=== PATIENT | female | born 1970 | race African-American/Black ===

== ENCOUNTER 2019-12-19 15:54 | Outpatient (CLI) | payer BC, SELFPAY ==
--- NOTE | ~2019-12-19 | MM_ITS ---
EXAMINATION: MM screening jacqueline BI w nidhi HISTORY: Screening mammogram TECHNIQUE: Craniocaudal and mediolateral oblique 3-D tomosynthesis images were obtained and synthetic 2-D images were generated. CAD analysis was submitted and interpreted. COMPARISON: Comparison to multiple prior studies sequentially, with oldest reviewed study dated 08/29. BREAST PARENCHYMAL COMPOSITION: There are scattered areas of fibroglandular density. FINDINGS: The left breast is stable without evidence for malignancy. There is a new focal mass in the medial aspect of the right breast on CC view. IMPRESSION: 1. New 5 mm right breast mass medially on CC view. 2. Additional mammographic views and possible breast ultrasound are recommended. BI-RADS Category 0: Incomplete: Needs additional imaging evaluation. Reviewed, dictated and finalized at location A. ISHING SPECIALIST IMPRESSION: 1. New 5 mm right breast mass medially on CC view. 2. Additional mammographic views and possible breast ultrasound are recommended . BI-RADS Category 0: Incomplete: Needs additional imaging evaluation.
== END 2019-12-19 15:55 | disposition home or self-care (01) ==
LOC: ANHIMG 15:58
PROVIDERS: PCP Internal Medicine; Visit Provider Obstetrics & Gynecology
DX: Z12.31 Encounter for screening mammogram for malignant neoplasm of breast (principal); R92.8 Other abnormal and inconclusive findings on diagnostic imaging of breast
CPT/HCPCS: 77063; 77067

== ENCOUNTER 2020-01-15 12:13 | Outpatient (CLI) | payer BC, SELFPAY ==
--- NOTE | ~2020-01-15 | MMUS_ITS ---
EXAMINATION: MM diagnostic mammo unilat RT, US breast RT limited HISTORY: Follow-up right breast asymmetry TECHNIQUE: Additional 3-D tomosynthesis images of the right breast were performed and synthetic 2-D i mages were generated. CAD analysis was submitted and interpreted. High resolution right breast ultras ound was performed. COMPARISON: 12/19/2019 FINDINGS: MAMMOGRAPHIC FINDINGS: Breast composed of scattered areas of fibroglandular density. There is a focal 4 mm asymmetry mediall y in the right breast, anterior third. No suspicious calcifications or architectural distortion. ULTRASOUND: Right breast ultrasound: There is a 4 mm complicated cyst at the 2:00 position the right breast near the nipple corresponding to the mammographic finding. Suspicious masses to suggest malignancy. IMPRESSION: 1. No evidence for malignancy in the right breast. 2. Routine yearly screening mammogram and regular clinical breast examination are recommended. BI-RADS Category 2: Benign finding(s). Reviewed, dictated and finalized at location A. IMPRESSION: 1. No evidence for malignancy in the right breast. 2. Routine yearly screening mammogram and regular clinical breast examination a re recommended. BI-RADS Category 2: Benign finding(s).
== END 2020-01-15 12:14 | disposition home or self-care (01) ==
LOC: ANHIMG 12:14
PROVIDERS: PCP Internal Medicine; Visit Provider Obstetrics & Gynecology
DX: R92.8 Other abnormal and inconclusive findings on diagnostic imaging of breast (principal)
CPT/HCPCS: 76642; 77065

== ENCOUNTER 2020-08-26 12:28 | Outpatient (CLI) | payer BC, SELFPAY ==
--- NOTE | ~2020-08-26 | US_ITS ---
EXAMINATION: US carotid duplex BI DATE: 08/26/2020 14:31 INDICATION: Right carotid bruit. TECHNIQUE: Grayscale, color Doppler, and pulsed Doppler images of the cervical carotid arteries were obtained. The degree of vessel stenosis is placed in one of the following categories: normal, <50%, 5 0-69%, >=70% but less than near-occlusion, near-occlusion, or total occlusion. Note that percent sten osis relative to normal distal artery lumen diameter is indirectly measured from velocity measurement s as described by Madhav, et al. Radiology 2003; 229:340-346. COMPARISON: None. FINDINGS: RIGHT: The right common carotid artery (CCA) peak systolic velocity (PSV) is 158 cm/s. The right internal ca rotid artery (ICA) PSV is 70 cm/s. The right ICA end-diastolic velocity (EDV) is 22 cm/s. The right I CA/CCA PSV ratio is 0.4. Grayscale and color Doppler images yield an estimate of <50% diameter reduct ion from plaque in the ICA. There is antegrade flow in the right vertebral artery. LEFT: The left CCA PSV is 148 cm/s. The left ICA PSV is 85 cm/s. The left ICA EDV is 39 cm/s. The left ICA/ CCA PSV ratio is 0.6. Grayscale and color Doppler images yield an estimate of <50% diameter reduction from plaque in the ICA. There is antegrade flow in the left vertebral artery. IMPRESSION: 1. <50% stenosis in the right internal carotid artery. 2. <50% stenosis in the left internal carotid artery. Reviewed, dictated and finalized at location A.
--- NOTE | 2020-08-26 12:53 | ECHO_ITS ---
Patient Info Name: Ciera Downs Age: 50 years : 1970 Gender: Female Ht: 68 in Wt: 468 lbs BSA: 3.34 m2 HR: 94 bpm BP: 134 / 88 mmHg Technical Quality: Good Exam Date: 08/26/2020 1:14 PM Exam Location: [facility] Patient Status: Outpatient Admit Date: 08/26/2020 Staff Ordering Physician: Magdalena Mackey Sales And Leasing Agent: Rahel Fields RDCS Attending Provider: Magdalena Mackey Referring Physician: Key DOTY; Exam Type: CA echo doppler color flow Study Info Indications R06.02 - Shortness of breath Complete two-dimensional, color flow and Doppler transthoracic echocardiogram is performed. Summary 1. Complete two-dimensional, color flow and Doppler transthoracic echocardiogram is performed. 2. Left ventricular chamber dimension is normal. 3. Ventricular septum is sigmoid shaped. Resting LVOT peak gradient is 15 mmHg and mean 8 mmHg suggests mild obstruction. This suggests hypertrophic cardiomyopathy. 4. Left ventricular systolic function is hyperdynamic, estimated at >70%. 5. The left ventricular diastolic function is grade I diastolic dysfunction. 6. E/e' 10 is mildly elevated. 7. Left atrial chamber dimension is mildly enlarged. 8. The mitral valve has mildly calcified annulus. 9. Mild systolic anterior motion of mitral valve. Left Ventricle E/e' 10 is mildly elevated. Ventricular septum is sigmoid shaped. Resting LVOT peak gradient is 15 mmHg and mean 8 mmHg suggests mild obstruction. This suggests hypertrophic cardiomyopathy. Left ventricular chamber dimension is normal. Left ventricular systolic function is hyperdynamic, estimated at >70%. The left ventricular diastolic function is grade I diastolic dysfunction. Right Ventricle Right ventricular chamber dimension is normal. Right ventricular systolic function is normal. Left Atria Left atrial chamber dimension is mildly enlarged. Right Atria Right atrial chamber dimension is normal. Aortic Valve The aortic valve is trileaflet. There is no aortic valve stenosis. There is no aortic valve regurgitation. Pulmonic Valve There is no pulmonic regurgitation. Mitral Valve The mitral valve has mildly calcified annulus. Mild systolic anterior motion of mitral valve. There is no mitral valve stenosis. There is no mitral valve regurgitation. Tricuspid Valve There is no tricuspid valve regurgitation. Pericardium/Pleural There is no pericardial effusion. Inferior Vena Cava Normal inferior vena cava with >50% collapse upon inspiration consistent with normal right atrial pressure, 5 mmHg. Aorta The aortic root size at the sinus of Valsalva is normal. Left Ventricular Outflow Tract Name Value Normal LVOT 2D LVOT Diameter 2.0 cm LVOT Doppler LVOT Peak Gradient 14 mmHg LVOT Mean Gradient 8 mmHg LVOT VTI 38 cm LVOT VTI/AV VTI Ratio 1.0 LVOT Stroke Volume 115 ml LVOT CO 10.0 l/min LVOT CI
== END 2020-08-26 12:29 | disposition home or self-care (01) ==
LOC: ANHCARD 12:30
PROVIDERS: PCP Internal Medicine; Visit Provider Clinical Nurse Specialist
DX: R06.02 Shortness of breath (principal); R09.89 Other specified symptoms and signs involving the circulatory and respiratory systems; I65.23 Occlusion and stenosis of bilateral carotid arteries
CPT/HCPCS: 93306; 93880

== ENCOUNTER 2020-10-05 10:00 | Outpatient (RCR) | payer BC, SELFPAY ==
--- NOTE | 2020-08-18 09:37 | PTOPEVAL ---
PHYSICAL THERAPY EVALUATION AND PLAN OF CARE 08-18-2020 Thank you for referring Ciera Downs to [facility].? Her insurance has authorized her for 8 visits, so she is scheduled to be seen for therapy?2x/week for 4 weeks. Then a reevaluation will be performed and a request will issued for additional visits. The expectation will be for 8-12 weeks of PT treatment for both legs. Please review, sign, date and return this plan of care LAURA. I agree with and certify that the following plan of care is medically necessary. Referring Physician Date Attending Provider: Joe Birmingham DO *PT Outpatient Evaluation Document 08/18/20 08:10 VICKIE (Rec: 08/18/20 09:37 VICKIE [id number]) Outpatient Past Medical History Past Medical History Source of Past Medical History Patient Neurological History Hx Neurological Disorders No Significant History Cardiovascular History Hx Hypercholesterolemia Yes: meds Hx Hypertension Yes: meds Respiratory History Hx Respiratory Disorders No Significant History Gastrointestinal History Hx Cholecystectomy Yes Genitourinary History Hx Genitourinary Disorders No Significant History Musculoskeletal History Hx Back Pain Yes: low back and both leg pain Hx Orthopedic Surgery Yes: R knee arthroscopy medial meniscus Hx Other Musculoskeletal Disorders Yes: L LE stripping of veins Hematological History Hx Hematological Disorders No Significant History Endocrine History Hx Diabetes Yes: pre diabetic- watching blood levels HEENT History Hx HEENT Disorders No Significant History Integumentary History Hx Skin Disorders No Significant History Other History Hx MRSA Yes: after gall bladder surgery; no recent issues Evaluation Information Problem Diagnosis B LE lymphedema Onset 2014 Subjective Information chronic lymphedema of both Query Text:As Reported By Patient/ legs Family Previous Treatments Previous Treatments For This Problem PT here in past January 2018 Prior Level of Function Activity Level (Last 3 Months) Occupation working from home; computer and phone Home Setting Home Type House Environmental Barriers Stairs, Greater than 4 Living Situation With Parent,With Relatives Mobility Assistive Devices (Used Last 3 None,Cane Months) Bathing Equipment Hand Held Shower,Tub Transfer Bench Comments Additional Prior Level of Function require assist with bathing, Comments transfers at times
--- NOTE | 2020-09-10 08:09 | PCPTNOTE ---
pt called and canceled today's appt, has to have cardiac testing done.
--- NOTE | 2020-09-14 10:59 | PTOPEVAL ---
PHYSICAL THERAPY RE-EVALUATION AND UPDATED PLAN OF CARE 09-14-2020 Refer to the clinical summary below for the comparison from initial evaluation to today's reevaluation. Thank you for referring Ciera Downs to [facility] Therapy is scheduled to continue? 2 x/week for 6 weeks. Please review, sign, date and return this plan of care LAURA. I agree with and certify that the following plan of care is medically necessary. Referring Physician Date Attending Provider: Joe Birmingham, *PT Outpatient Re-Evaluation Document 09/14/20 10:10 VICKIE (Rec: 09/14/20 10:59 VICKIE [id number]) Subjective Information Ciera reports: pleased with Query Text:As Reported By Patient/ the softening of her R Family lobules and how the compression garment is helping her L LE; had ECHO and carotid artery checked, to see pharmacy resident next week for the results of the tests; is continuing to postal worker, so able to keep the compression reduction kit on her L leg, but if have to drive, cannot wear it due to the bulkiness, cannot get into the car and drive with it on; wants to continue therapy, Her mom and aunt are helping her put the garments on and she is wearing them to sleep in. Pain Assessment Timing of Pain Assessment Timing of Pain Assessment Assessment Pain Scale Pain Scale Used Numeric (1 - 10) Self Report Pain Assessment Bilateral Leg(s) Reported Pain Level 7 Pain Frequency Chronic Other Pain Description pain and heaviness in legs Lowest Pain Intensity 6 Greatest Pain Intensity 9 Pain Aggravating Factors Additional Pain Comments awaken from sleep 2x/night due to leg pain Pain Score Pain Score 7: Self Report Interventions Used Interventions Used By Clinicians Exercise Lower Extremity Range of Motion General Lower Extremity Range of Motion Gross Lower Extremity Range of Motion sitting knee flexion R 75'/ L Comments 80'; Gait Assessment Gait Assessment Ambulation Assistive Devices Cane Ambulation Distance 100 Query Text:(Feet) Ambulation Destination In Corridor Ambulation Ability Independent Additional Ambulation Comments labored with walking due to
--- NOTE | 2020-09-24 13:27 | PCPTNOTE ---
Patient had seen adult basic education manager the other day due to them requiring another set of tests. Patient cannot remember the name of the diagnosis, however states her heart is not beating properly and one of her polk is thick. She state's MD put her on a beta tristian which will lower her BP and possibly have some side effects such as(dizzy, light headed, just generally feeling Off. ) Patient reports she mentioned all of her lymphedema therapy to the MD and he stated to continue with all that she is doing as she probably has had this for awhile. Spoke with Zita Lam about treatment today and plan-okay to continue per POC.
--- NOTE | 2020-10-08 09:44 | PCPTNOTE ---
pt called and cancelled due to insurance verification.
--- NOTE | 2020-10-15 10:07 | PCPTNOTE ---
Pt called and cancelled today due to non coverage of insurance.
--- NOTE | 2020-11-15 09:45 | PCPTNOTE ---
PHYSICAL THERAPY DISCHARGE 11-15-20 Attending Provider: oJe Birmingham DO Patient:Ciera Downs Date of :1970 Ms. Downs has not returned for any further treatments since 10/05/2020, therefore she will be discharged at this time. She received a total of 8 PT sessions, from August 18 to October 05, 2020, for the diagnosis of B LE lymphedema. She then stopped attending therapy. There were issues with her insurance. At the last measurement, her L LE circumferential measurement was 1317.5 cm. The goals were not assessed. Thank you for referring Ms. Downs to [facility]. Please review, sign, date and return this discharge summary LAURA. I have been updated about the patient's current status and I agree with discharge from the above service at this time. Referring Physician Date
== END 2020-11-16 10:17 | disposition home or self-care (01) ==
LOC: ANHPT 10:00
PROVIDERS: PCP Internal Medicine; Visit Provider Internal Medicine
DX: I89.0 Lymphedema, not elsewhere classified (principal)
CPT/HCPCS: 97140; 97161

== ENCOUNTER 2021-04-20 10:02 | Outpatient (CLI) | payer BC, SELFPAY ==
--- NOTE | ~2021-04-20 | MM_ITS ---
EXAMINATION: MM screening jacqueline BI w nidhi HISTORY: Screening mammogram TECHNIQUE: Craniocaudal and mediolateral oblique 3-D tomosynthesis images were obtained and synthetic 2-D images were generated. CAD analysis was submitted and interpreted. COMPARISON: 01/15/2020 diagnostic right mammogram and limited right breast ultrasound 12/19/2019, , 11/22/2017, 11/17/2016, 09/17/2015 bilateral digital screening mammogram examinat ions BREAST PARENCHYMAL COMPOSITION: There are scattered areas of fibroglandular density. FINDINGS: Stable mild fibroglandular asymmetry since 09/17/2015. There is no evidence of suspicious m ass, calcification, or architectural distortion to suggest malignancy in either breast. There has bee n no suspicious interval change. IMPRESSION: 1. No mammographic evidence of malignancy. 2. Recommend routine screening mammography in one year. BI-RADS Category 2: Benign finding(s). Reviewed, dictated and finalized at location A.
== END 2021-04-20 10:03 | disposition home or self-care (01) ==
LOC: ANHIMG 10:05
PROVIDERS: PCP Internal Medicine; Visit Provider Obstetrics & Gynecology
DX: Z12.31 Encounter for screening mammogram for malignant neoplasm of breast (principal)
CPT/HCPCS: 77063; 77067

== ENCOUNTER 2021-12-12 09:34 | Outpatient (CLI) | payer BC, SELFPAY ==
--- NOTE | 2021-12-12 09:41 | ECHO_ITS ---
Patient Info Name: Ciera Downs Age: 51 years : 1970 Gender: Female Ht: 67 in Wt: 417 lbs BSA: 3.12 m2 HR: 79 bpm BP: 135 / 92 mmHg Technical Quality: Good Exam Date: 12/12/2021 10:06 AM Exam Location: [facility] Patient Status: Outpatient Admit Date: 12/12/2021 Staff Ordering Physician: Joshua David DO Oil Field Technician: Rahel Fields RDCS Attending Provider: Joshua David DO Referring Physician: Frankie HUNT; Exam Type: CA echo doppler color flow Study Info Indications I42.2 - Other hypertrophic cardiomyopathy Complete two-dimensional, color flow and Doppler transthoracic echocardiogram is performed. Summary 1. Complete two-dimensional, color flow and Doppler transthoracic echocardiogram is performed. 2. Left ventricular chamber dimension is normal. 3. Left ventricular systolic function is normal, estimated at 60-65%. 4. The left ventricular diastolic function is grade II diastolic dysfunction. 5. E/e' 15 is elevated. 6. Global longitudinal strain is normal at -17.5%. 7. Left atrial chamber dimension is mildly enlarged. 8. There is trace aortic valve regurgitation. 9. No pulmonary hypertension, estimated pulmonary arterial systolic pressure is 33 mmHg. 10. There is trivial pericardial effusion. Left Ventricle E/e' 15 is elevated. Global longitudinal strain is normal at -17.5%. Left ventricular chamber dimension is normal. Left ventricular systolic function is normal, estimated at 60-65%. The left ventricular diastolic function is grade II diastolic dysfunction. Right Ventricle Right ventricular chamber dimension is normal. Right ventricular systolic function is normal. Left Atria Left atrial chamber dimension is mildly enlarged. Right Atria Right atrial chamber dimension is normal. Aortic Valve The aortic valve is trileaflet. There is no aortic valve stenosis. There is trace aortic valve regurgitation. Pulmonic Valve There is no pulmonic regurgitation. Mitral Valve There is no mitral valve stenosis. There is no mitral valve regurgitation. Tricuspid Valve There is no tricuspid valve regurgitation. No pulmonary hypertension, estimated pulmonary arterial systolic pressure is 33 mmHg. Pericardium/Pleural There is trivial pericardial effusion. Inferior Vena Cava Normal inferior vena cava with >50% collapse upon inspiration consistent with normal right atrial pressure, 5 mmHg. Aorta The aortic root size at the sinus of Valsalva is normal. Left Ventricular Outflow Tract Name Value Normal LVOT 2D LVOT Diameter 1.9 cm LVOT Doppler LVOT Peak Gradient 5 mmHg LVOT Mean Gradient 3 mmHg LVOT VTI 26 cm LVOT VTI/AV VTI Ratio 0.7 LVOT Stroke Volume 71 ml LVOT CO 5.2 l/min LVOT CI 1.7 l/min/m2 Pulmonic Valve Name Value Normal -----
== END 2021-12-12 09:35 | disposition home or self-care (01) ==
PROVIDERS: PCP Internal Medicine; Visit Provider Internal Medicine Cardiovascular Disease
DX: I42.2 Other hypertrophic cardiomyopathy (principal)
CPT/HCPCS: 93306

== ENCOUNTER → 2022-01-21 08:38 | Outpatient (CLI) | payer BC, SELFPAY ==
--- NOTE | ~2022-01-21 | XR_ITS ---
EXAMINATION: XR chest 2V DATE: 01/21/2022 08:55 INDICATION: Shortness of breath TECHNIQUE: frontal view of the chest was obtained. COMPARISON: None FINDINGS: The lungs are clear with no focal airspace opacities, pulmonary edema, pleural effusion or pneumothor ax. The cardiomediastinal silhouette is normal. Mild lower thoracic dextrocurvature. IMPRESSION: 1. No acute cardiopulmonary disease. Reviewed, dictated and finalized at location A.
== END ==
PROVIDERS: PCP Clinical Nurse Specialist; Visit Provider Clinical Nurse Specialist
DX: R06.02 Shortness of breath (principal)
CPT/HCPCS: 71046

== ENCOUNTER 2022-02-01 07:25 | Outpatient (CLI) | payer BC, SELFPAY ==
--- NOTE | ~2022-02-01 | US_ITS ---
EXAMINATION: US right upper quadrant EXAM DATE: 02/01/2022 08:05 INDICATION: R74.8 - Abnormal levels of other serum enzymes. TECHNIQUE: Multiple grayscale and Doppler images of the abdomen right upper quadrant were obtained (b y a technologist who performed the scan) and subsequently reviewed. Comparison is made to prior exami nation from 01/12/2014. FINDINGS: The pancreatic head and body are normal in appearance. The pancreatic tail is not visualized. The l iver has normal echogenicity and contour. There are no focal liver lesions identified. There is no evidence of intrahepatic biliary duct dilation. Portal venous flow was seen in the hepatopedal, nor mal direction and has normal Doppler waveform. No right-sided hydronephrosis. Common bile duct measures 6 mm, which is normal. The gallbladder fossa is unremarkable. IMPRESSION: Unremarkable abdominal ultrasound exam. Reviewed, dictated and finalized at location A.
== END 2022-02-01 07:26 | disposition home or self-care (01) ==
LOC: ANHIMG 07:31
PROVIDERS: PCP Internal Medicine; Visit Provider Clinical Nurse Specialist
DX: R74.8 Abnormal levels of other serum enzymes (principal)
CPT/HCPCS: 76705

== ENCOUNTER 2022-02-28 00:06 | Day surgery (SDC) | payer BC, SELFPAY ==
[2022-02-15 14:19] VITALS: BMI 64.5
[2022-02-28 11:19] VITALS: BP 168/85; PULSE 79; RESP 22; TEMP 36.3; O2SAT 100
[2022-02-28] MEDS: LACTATED RINGERS 1,000 ML 150 ML IV CONT (11:28)
--- NOTE | 2022-02-28 12:29 | PM.HPGS ---
History of Present Illness History of Present Illness Consent: Risks, benefits, and alternatives have been discussed and questions answered. Patient agrees to proceed with procedure. Chief complaint: neoplasm screening Narrative: Ciera Downs is a 51 year old female here for screening colonoscopy, last one over 10 years ago. Review of Systems Constitutional: Constitutional: Denies headache(s) and Denies weakness Eyes: Eyes: Denies blurry vision ENT: Reports Normal hearing present, Denies headache(s) and Denies neck pain Cardiovascular: Cardiovascular: Denies chest pain and Denies dyspnea Respiratory: Respiratory: Denies dyspnea Gastrointestinal: Gastrointestinal: Reports no additional gastrointestinal complaints Genitourinary: Genitourinary: Denies dysuria Musculoskeletal: Musculoskeletal: Denies neck pain Integumentary/Breasts: Skin/Breast: Denies dry skin Neurologic: Reports Normal hearing present, Denies headache(s) and Denies weakness Psychiatric: Psychiatric: Denies anxiety Endocrine: Endocrine: Denies change in body appearance Hematologic/Lymphatic: Hematologic/Lymphatic: Denies easy bleeding Allergic/Immunologic: Allergic/Immunologic: Denies urticaria PMFSH Past Medical History Medical History (Updated 02/28/22 @ 12:30 by Aric Pal MD) Colon cancer screening Depression Essential hypertension Gout Hyperlipidemia Meralgia paresthetica, right lower limb Right carotid bruit Vitamin D deficiency Surgical History Surgical History History of cholecystectomy Family History Family History Mother Hypertension Father Family history of liver disease Family history of hepatitis Other Breast cancer Other Family history of arthritis Family history of malignant neoplasm of breast Social History Social History Smoking status: Former smoker Alcohol intake: current Drinks per week: 2 Alcohol use details: occasionally Substance use: never Substance use type: does not use Living arrangements: alone Additional living arrangements comments: MOTHER Spiritual care concerns: No Meds Home Medications and Allergies Home Medications Medication Instructions Recorded Confirmed Type cartilage 40 mg-collagen II-boron 1 tablet PO DAILY tablet 04/21/20 02/15/22 History 5 mg-hyaluronate sod 3.3 mg tablet multivitamin 1 tablet PO DAILY 04/21/20 02/15/22 History progesterone micronized 100 mg 100 mg PO .QHS cap 04/21/20 02/15/22 History capsule apple cider vinegar 600 mg capsule 600 mg PO DAILY 07/30/20 02/15/22 History cholecalciferol (vitamin D3) 25 1,000 unit PO DAILY cap 07/30/20 02/15/22 History mcg (1,000 unit) capsule naproxen 500 mg PO BID PRN 09/29/20 02/15/22 History fluoxetine 20 mg capsule 20 mg PO DAILY #90 cap 01/05/22 02/15/22 Rx liraglutide (weight loss) 3 mg/0.5 3 mg SUBCUT DAILY 01/05/22 02/15/22 History mL (18 mg/3 mL) subcut pen injector lisinopril 20 1 tablet PO DAILY #90 tablet 01/23/22 02/15/22 Rx mg-hydrochlorothiazide 12.5 mg tablet simvastatin 40 mg tablet 40 mg PO DAILY #90 tablet 01/23/22 02/15/22 Rx colchicine 0.6 mg PO DAILY PRN 02/15/22 02/15/22 History metoprolol succinate 25 mg PO DAILY 02/15/22 02/15/22 History mupirocin calcium 1 applic TOPICAL BID PRN 02/15/22 02/15/22 History Allergies Allergy/AdvReac Type Severity Reaction Status Date / Time No Known Allergies Allergy Verified 02/15/22 14:17 Vital Signs Vital Signs - 24 hr 02/28/22 11:19 Temperature 97.3 F L Pulse Rate 79 Respiratory Rate 22 H Blood Pressure 168/85 H Pulse Oximetry 100 Exam Const: General: comfortable and no acute distress HENMT: General nose exam: Normal nares present Eyes: General: appearance normal, both eyes and all related structures
--- NOTE | 2022-02-28 12:39 | WPDANESEPPF ---
Anes - Initial Pre Proc Eval Procedure: Operation Date: 02/28/22 12:30 Proposed Procedures p Screening Colonoscopy - Aric Pal MD Date/Time: 02/28/22 12:39 Surgeon: Aric Pal MD Pre Op Diagnosis: neoplasm screening Patient Data Age: 51 Gender: F Height: 1.7 m Weight: 193.1 kg Last Vital Signs Temp 97.3 F L 02/28/22 11:19 Pulse 79 02/28/22 11:19 Resp 22 H 02/28/22 11:19 BP 168/85 H 02/28/22 11:19 Pulse Ox 100 02/28/22 11:19 Allergies Allergy/AdvReac Type Severity Reaction Status Date / Time No Known Allergies Allergy Verified 02/15/22 14:17 Home Medications Medication Instructions Recorded Confirmed Type cartilage 40 mg-collagen II-boron 1 tablet PO DAILY tablet 04/21/20 02/15/22 History 5 mg-hyaluronate sod 3.3 mg tablet multivitamin 1 tablet PO DAILY 04/21/20 02/15/22 History progesterone micronized 100 mg 100 mg PO .QHS cap 04/21/20 02/15/22 History capsule apple cider vinegar 600 mg capsule 600 mg PO DAILY 07/30/20 02/15/22 History cholecalciferol (vitamin D3) 25 1,000 unit PO DAILY cap 07/30/20 02/15/22 History mcg (1,000 unit) capsule naproxen 500 mg PO BID PRN 09/29/20 02/15/22 History fluoxetine 20 mg capsule 20 mg PO DAILY #90 cap 01/05/22 02/15/22 Rx liraglutide (weight loss) 3 mg/0.5 3 mg SUBCUT DAILY 01/05/22 02/15/22 History mL (18 mg/3 mL) subcut pen injector lisinopril 20 1 tablet PO DAILY #90 tablet 01/23/22 02/15/22 Rx mg-hydrochlorothiazide 12.5 mg tablet simvastatin 40 mg tablet 40 mg PO DAILY #90 tablet 01/23/22 02/15/22 Rx colchicine 0.6 mg PO DAILY PRN 02/15/22 02/15/22 History metoprolol succinate 25 mg PO DAILY 02/15/22 02/15/22 History mupirocin calcium 1 applic TOPICAL BID PRN 02/15/22 02/15/22 History Patient hx anesthesia problems: none Family hx anesthesia problems: none Results Review: All pre-operative results and documents have been reviewed as part of the pre-operative evaluation. [facility] Past Medical History Medical History (Updated 02/28/22 @ 12:30 by Aric Pal MD) Colon cancer screening Depression Essential hypertension Gout Hyperlipidemia Meralgia paresthetica, right lower limb Right carotid bruit Vitamin D deficiency Surgical History Surgical History History of cholecystectomy Family History Family History Mother Hypertension Father Family history of liver disease Family history of hepatitis Other Breast cancer Other Family history of arthritis Family history of malignant neoplasm of breast Social History Social History Smoking status: Former smoker Alcohol intake: current Drinks per week: 2 Alcohol use details: occasionally Substance use: never Substance use type: does not use Living arrangements: alone Additional living arrangements comments: MOTHER Spiritual care concerns: No Anes - Eval Final PreProcedure Day of Procedure 02/28/22 12:39 Patient weight: super morbidly obese Heart: regular rate and rhythm Lungs: clear to auscultation Airway: Mallampati scale class III Neurological: alert and oriented Last oral intake: >/= 8 hours ASA classification: IV Emergent: no Anesthetic plan: proceed Anesthesia type and monitoring: general GIVS and standard monitoring Results Review: All pre-operative results and documents have been reviewed as part of the pre-operative evaluation. Informed Consent: The patient's anesthetic plan and its attendant risks and benefits were discussed with the patient/family/POA. Questions were solicited and answers provided to the satisfaction of the patient/family/POA.
[2022-02-28 13:00] VITALS: BP 105/61; PULSE 79; RESP 23; O2SAT 99
[2022-02-28 13:10] VITALS: BP 118/69; PULSE 81; RESP 21; O2SAT 100
[2022-02-28 13:20] VITALS: BP 135/87; PULSE 77; RESP 19; O2SAT 100
== END 2022-02-28 13:23 | disposition home or self-care (01) ==
PROVIDERS: PCP Internal Medicine; Visit Provider Internal Medicine Gastroenterology
PROC: 0DJD8ZZ Inspection of Lower Intestinal Tract, Via Natural or Artificial Opening Endoscopic (ICD-10-PCS; CPT 45378; principal; 2022-02-28 12:30)
DX: Z12.11 Encounter for screening for malignant neoplasm of colon (principal); K57.30 Diverticulosis of large intestine without perforation or abscess without bleeding; I10 Essential (primary) hypertension; E55.9 Vitamin D deficiency, unspecified; E78.5 Hyperlipidemia, unspecified; M10.9 Gout, unspecified; G57.11 Meralgia paresthetica, right lower limb; R09.89 Other specified symptoms and signs involving the circulatory and respiratory systems; F32.A Depression, unspecified; Z87.891 Personal history of nicotine dependence
CPT/HCPCS: 45378; J2704; J7120

== ENCOUNTER 2022-03-03 07:33 | Outpatient (CLI) | payer BC, SELFPAY ==
--- NOTE | ~2022-03-03 | XR_ITS ---
EXAMINATION: XR UGIAC w barium swallow DATE: 03/03/2022 08:38 INDICATION: Presurgical assessment for gastric sleeve surgery TECHNIQUE: The patient drank thick barium, gas-producing crystals, and thin barium. Conventional supi ne abdomen radiographs and fluoroscopy of the esophagus, stomach, and proximal small bowel were perfo rmed. Fluoroscopy exposure time was 2.0 minutes. The DAP for this procedure was 108 Gycm2. COMPARISON: None. FINDINGS: There is no mass or stricture of the esophagus. Esophageal motility is normal. There is no hiatal hernia. There was a small amount of spontaneous gastroesophageal reflux. The stomach and proxi mal small bowel show normal folding patterns. IMPRESSION: 1. Small amount of spontaneous gastroesophageal reflux. Reviewed, dictated and finalized at location B.
== END 2022-03-03 07:34 | disposition home or self-care (01) ==
LOC: ANHIMG 07:38
PROVIDERS: PCP Internal Medicine; Visit Provider Clinical Nurse Specialist
DX: Z01.818 Encounter for other preprocedural examination (principal); K21.9 Gastro-esophageal reflux disease without esophagitis
CPT/HCPCS: 74246

== ENCOUNTER 2022-07-04 08:24 | Outpatient (CLI) | payer BC, SELFPAY ==
--- NOTE | ~2022-07-04 | MM_ITS ---
EXAMINATION: MM screening jacqueline BI w nidhi HISTORY: Screening TECHNIQUE: Craniocaudal and mediolateral oblique 3-D tomosynthesis images were obtained and synthetic 2-D images were generated. CAD analysis was submitted and interpreted. COMPARISON: 04/20/2021 bilateral screening mammogram 01/15/2020 diagnostic right mammogram and limited right breast ultrasound 12/19/2019, 11/29/2018 bilateral screening mammogram examinations BREAST PARENCHYMAL COMPOSITION: There are scattered areas of fibroglandular density. FINDINGS: Stable mild fibroglandular asymmetry. There is no evidence of suspicious mass, calcificatio n, or architectural distortion to suggest malignancy in either breast. There has been no suspicious i nterval change. IMPRESSION: 1. No mammographic evidence of malignancy. 2. Recommend routine screening mammography in one year. BI-RADS Category 1: Negative Reviewed, dictated and finalized at location A.
== END 2022-07-04 08:25 | disposition home or self-care (01) ==
PROVIDERS: PCP Internal Medicine; Visit Provider Obstetrics & Gynecology
DX: Z12.31 Encounter for screening mammogram for malignant neoplasm of breast (principal)
CPT/HCPCS: 77063; 77067

== ENCOUNTER 2024-03-26 09:32 | Outpatient (CLI) | payer BC, SELFPAY ==
--- NOTE | ~2024-03-26 | MM_ITS ---
EXAMINATION: MM screening jacqueline BI w nidhi HISTORY: Screening TECHNIQUE: Craniocaudal and mediolateral oblique 3-D tomosynthesis images were obtained and synthetic 2-D images were generated. CAD analysis was submitted and interpreted. COMPARISON: Comparison to multiple prior studies sequentially, with oldest reviewed study dated 12/19. BREAST PARENCHYMAL COMPOSITION: There are scattered areas of fibroglandular density. FINDINGS: There is no evidence of suspicious mass, calcification, or architectural distortion to sugg est malignancy in either breast. There has been no suspicious interval change. IMPRESSION: 1. No mammographic evidence of malignancy. 2. Recommend routine screening mammography in one year. BI-RADS Category 1: Negative Reviewed, dictated and finalized at location B.
== END 2024-03-26 09:33 | disposition home or self-care (01) ==
PROVIDERS: PCP Internal Medicine; Visit Provider Obstetrics & Gynecology
DX: Z12.31 Encounter for screening mammogram for malignant neoplasm of breast (principal)
CPT/HCPCS: 77063; 77067